=== PATIENT | female | born 1935 | race Caucasian/White ===

== ENCOUNTER 2016-09-23 09:41 | Day surgery (SDC) | payer MEDICARE, OTHER ==
--- NOTE | 2016-09-22 11:51 | PCM.ANEPRE ---
Anesthesia Pre-Op Review Reason for Review: FYI-CARDIAC HX,COPD Anesthesia Recommendations: Proceed with Procedure Additional Comments 81 yo F scheduled for I&D Left Foot by Dr. Putnam. Diabetic (HgA1c 7.1), COPD , atrial fibrillation, and CHF. Last echo 04/15/2016 with EF 40%, moderate/severe MR, mild , mild/mod TR. Low METS due to ulcerated foot. NSQUIP cardiac risk 1.6%, overall serious complications 20.9%. Overall low risk procedure likely able to be done under local MAC. OK to proceed with further eval by DOS anesthesiologist. Chart Reviewed by: Ashutosh Gooden MD Sep 22, 2016 11:51
[~2016-09-23] VITALS: Ht 162.6 cm; Wt 57.7 kg
[~2016-09-23 09:41] MED LIST: ALBU8.5H2 INHALATION; APIX2.5T PO; ARFO15VI2 IH; ATOR20TA65 PO; BIOT5CAP9 PO; BUDE10.2 INHALATION; FLAX100038 PO; IPRA3AMP IH; LISI2.5T PO; MAGN400C PO; METF500T4 PO; MULT-321 PO; OMEP20TA24 PO; PULM.25NEB IH; TOP100 PO; VIT1CAPS8 PO
[2016-09-23] MEDS ORDERED: fentaNYL-PF 50 mCg/mL 2 mL Inj ONE (09:42)
[2016-09-23] MEDS ORDERED: Propofol 10,000 mCg/mL 20 mL Inj ONE (09:42)
[2016-09-23] MEDS: Lactated Ringer's 1,000 ML IV SCH ×2 (10:08→13:13)
[2016-09-23 10:21] VITALS: BP 96/57; PULSE 87; RESP 12; O2SAT 93
[2016-09-23] MEDS ORDERED: CeFAZolin Inj 2 GM in IV Premix 1 EACH IV ONE (10:35)
[2016-09-23] MEDS ORDERED: Bupivacaine-MPF 0.5% W/EPI 30 mL Inj INFILTRATE ONE (13:29)
[2016-09-23] MEDS ORDERED: Bupivacaine-MPF 0.5% 30 mL Inj INJ ONE (13:29)
[2016-09-23] MEDS ORDERED: Gentamicin 40 mg/mL 2 mL Inj IRRIGATION ONE (13:31)
[2016-09-23 14:46] VITALS: BP 119/68; PULSE 74; RESP 16; O2SAT 95
[2016-09-23 15:25] VITALS: BP 114/61; PULSE 71; RESP 16; O2SAT 94
--- NOTE | 2016-09-23 15:34 | PCM.HPANE ---
Patient Data Surgeon Admitting Provider: Attending Provider:Frandy Putnam DPM Primary Care Physician:Davidson Garcia MD Other Provider:Elza Collado Anesthesia Reason for Visit Left Foot Osteomyelitis Ht/WT & BMI Height (Feet): 5 Height (Inches): 4.00 Weight (Kilograms): 57.700 Body Mass Index 21.00 Allergies Coded Allergies: lisinopril (Verified Adverse Reaction, Severe, renal failure, 09/22/16) naproxen (Verified Adverse Reaction, Severe, GI bleeding, 09/22/16) Past Anesthesia History Anesthesia History: Denies:: Anesthesia Reactions, Malignant Hyperthermia Diabetes History Hx Diabetes?: Yes Type of Diabetes: Type II Glycemic Control: Oral Medication Current Bedside Blood Glucose: 113 MRSA MRSA: No Medications Hypertension Medication: Yes (LISINOPRIL) Home Meds Incl Beta Uche: Yes (Metoprolol 50mg) Date Beta Uche Taken: Sep 23, 2016 Time Beta Uche Taken: 0700 Reported Medications Omeprazole Magnesium (Prilosec Otc)20 Mg Tablet.dr20 Mg PO DAILY #1 PKG Ref 0 09/22/16 Vit C/Vit E/Lutein/Min/[place]-3 (Ocuvite Softgel)1 Each Capsule1 Each PO DAILY 09/22/16 Lisinopril 2.5 Mg Tablet2.5 Mg PO DAILY 30 Days Ref 0 09/22/16 Flaxseed Oil ([place]-3 Flaxseed Oil)1,000 Mg Capsule1,000 Mg PO DAILY 09/22/16 Ipratropium/Albuterol Sulfate (Iprat-Albut 0.5-3(2.5) mg/3 mL Inhalant Soln)3 Ml Ampul.neb3 Ml IH Q6 PRN prn Ref 0 09/22/16 Budesonide (Pulmicort)0.25 Mg/2 Ml Nebu0.125 Mg IH BID PRN Shivering 30 Days Ref 0 09/22/16 Arformoterol Tartrate (Brovana)15 Mcg/2 Ml Vial.neb15 Mcg IH BID 09/22/16 Biotin 5 Mg Capsule5 Mg PO DAILY 09/22/16 Apixaban (Eliquis)2.5 Mg Tablet2.5 Mg PO DAILY 09/22/16 Budesonide/Formoterol 80-4.5 mcg Inh (Symbicort 80-4.5 mcg Inh)120 Puff Inhaler1 Puff INHALATION BID #1 INHALER Ref 0 11/09/15 Albuterol HFA (Proair HFA)8.5 Gm Hfa.aer.ad2 Puffs INHALATION Q4H PRN For Shortness of Breath #1 INHALER 11/09/15 Metformin 500 Mg Beiotc396 Mg PO BID Ref 0 11/09/15 Multivit with Calcium,Iron,Min (Maximum Daily Multivitamin)1 Each Tablet1 Each PO DAILY 08/18/14 Metoprolol Succinate ER (Toprol XL)100 Mg [id number] Mg PO BID 30 Days Ref 0 08/18/14 Magnesium Oxide (Magnesium)400 Mg Fmicvwe803 Mg PO DAILY 08/18/14 Atorvastatin Calcium 20 Mg Kduyvg72 Mg PO DAILY #30 TABLET Ref 0 08/18/14 Discontinued Reported Medications Flaxseed (Flaxseed Oil)1,000 Mg CapsuleUnknown Dose PO DAILY 11/09/15 Vit C/Vit E/Lutein/Min/[place]-3 (Ocuvite Softgel)1 Each Capsule1 Each PO DAILY 08/18/14 Aspirin 325 Mg Tablet.dr325 Mg PO DAILY #1 BOTTLE Ref 0 08/18/14 Omeprazole (Prilosec)20 Mg Capcr20 Mg PO DAILY 30 Days Ref 0 08/18/14 Discontinued Scripts Azithromycin (Zithromax)250 Mg Jvjcyh548 Mg PO DAILY #2 TABLET Ref 0 Prov:Celi Peña DO 11/13/15 Ipratropium/Albuterol Sulfate (Iprat-Albut 0.5-3(2.5) mg/3 mL Inhalant Soln)3 Ml Ampul.neb3 Ml IH Q6 #150 NEB Ref 0 Prov:Luis Sebastian MD 10/23/15 History History of ENT Problems?: Yes HEENT History: Positive for:: Cataracts (S/P B/L EXTRACTION) Sinus Problem Denies:: Dysphagia Denture Type: Full- Upper Partial- Lower Other HEENT Pertinent History: S/P TONSILLECTOMY Hx of Heart Problems?: Yes Cardiovascular History: Positive for:: Atrial Fibrillation (HX OF A FIB-ON ELIQUIS FOR ANITCOAG.-STOPPED 09/20/16) Chest Pain Congestive Heart Failure Edema Heart Murmur (GR II/ HOLOSYSTOLIC ECHO 03/2016 EF 40) Hypertension (HYPERLIPIDEMIA) Irregular Heartbeat (AF) Valvular Heart Disease (MOD/SEVERE MR, MILD AORTIC SCLEROSIS,MILD/MOD TR) Denies:: Cardiac Surgery Pacemaker Rheumatic Fever Thrombophlebitis Hx of Respiratory Problem?: Yes Respiratory History: Positive for:: Asthma COPD Dyspnea Pneumonia (HX OF) Use of Inhalers / NEBS Denies:: Chest Surgery Emphysema Hemoptysis Tuberculosis Use of C-PAP Machine Hx Neurologic Problems?: Yes Neurological History: Positive for:: CVA (TIA) Headaches TIA (2006) Denies:: Alzheimer's Disease Dementia Dizziness Parkinson's Disease Seizures Other Neurological Pertinent: HX PERIPHERAL NEUROPATHY Hx of GI Problems?: Yes Gastrointestinal History: Positive for:: Gastroesphageal Reflux Gastrointestinal Bleeding (??ETIOLOGY) Heartburn Hiatal Hernia Denies:: Diverticulitis Hepatitis Rectal Bleeding (HX COLON POLYPS) Other GI Pertinent History: S/P APPY, COLON RESECTION X2 W/ ILESOSTOMY FOR CA (W/ RECURRANCE) Hx of Problems?: Yes Genitourinary History: Denies:: HX of Hemodialysis (HYX CHRONIC RENAL INSUFFICIENCY) Kidney Stones Urinary Tract Infection HX of Peritoneal Dialysis: No Female Hx: Denies:: Currently Endometriosis Pelvic Inflammatory Problems with Breasts? Skin History: Positive for:: History Skin Disorders? (S/P EXC SQUAMOUS CELL CA /SKIN) Denies:: Pressure Ulcers (LT PLANTAR NON PRESSURE ULCERATION/OSTEOMYELITIS= CURRENT PROBLEM) Hx Musculoskeletal Problems?: Yes Musculoskeletal History: Positive for:: Back Injury (Pinched nerve in back last year, got injection. ) Osteoarthritis Denies:: Joint Replacement Musculoskeletal Trauma Hx of Psycho/Social Problems?: No Psycho Social History: Denies:: Anxiety Bipolar Disorder Hx Depression Suicide Attempt Hx Surgeries?: Yes (COLON RESECTION X2 W/ ILEOSTOMY,APPY,TONSILS,CATARACTS, SQUAMOUS CELL CA-SKI) Hx Any Other Health Problems?: Yes Other History: Positive for:: Cancer (SQUAMOUS CELL CA OF SKIN,COLON CA X2) Hospitalization (CARDIAC/COPD) Denies:: Endocrine Disease Thyroid Disease History Blood Transfusions: Denies:: Blood Transfuse Reaction Blood Transfusions Hx Diabetes: YesBedside Blood Glucose: 113 Hx Alcohol Use: YesHx Substance Use: No Smoking Status: Former Smoker Have You Smoked inLast 12 mo: No Stop/Bang S-Snoring: Do You Snore Loudly: No T-Tired: feel tired, fatigued: No O-Obsered: Observed not breath: No P-Blood Pressure: treated: Yes B- Body Mass Index > 35 kg/m2: No A- Age over 50: Yes N- Neck Large Circumference: No G- Gender Male: No ZACH Total Score: 2 Risk Assessment Category Category 1A: Patient has history of documented sleep apnea, and HAS NOT received any narcotic, sedative or anesthesia administration during this stay. Category 1B: Patient has history of documented sleep apnea, and HAS received any narcotic , sedative or anesthesia administration during this stay Category 2: Patient has SUSPECTED Obstructive Sleep Apnea, and HAS received any narcotic , sedative or anesthesia administration during this stay. Category 3: Patient has SUSPECTED Obstructive Sleep Apnea and HAS NOT received narcotic, sedative or anesthesia administration during this stay. Category 4: Outpatient in Procedural Areas with known sleep apnea or who screen positive for High Risk via the STOP/BANG questionnaire. Exam Exam Vital Signs Vital Signs Date Time Temp Pulse Resp B/P Pulse Ox O2 Delivery O2 Flow Rate FiO2 09/23/16 15:25 71 16 114/61 94 Room Air 09/23/16 14:46 36 74 16 119/68 95 Room Air 09/23/16 10:21 35.8 87 12 96/57 93 Room Air General Appearance: Alert, Oriented X3, Cooperative HEENT/AIRWAY: MP 2 Lungs: Normal Air Movement Heart: Exam Unremarkable Meds/Labs/Diagnostics Admission Meds Current Medications Lactated Ringer's 1,000 ml @ 120 mls/hr Q8H20M IV Last administered on 13:13; Start 09/23/16 at 05:00; Stop 09/23/16 at 13:19; Status DC Cefazolin Sodium/ Dextrose/Premix (Ancef Inj / D5W 50mL/IV Premix) 50 ml @ 100 mls/hr ONCE ONCE IV Last administered on 09/23/16 13:22; Start 09/23/16 at 10 :35; Stop 09/23/16 at 11:04; Status DC Lidocaine HCl (Xylocaine 2% Inj) 10 ml STK-MED ONCE INJ Last administered on 13:29; Start 09/23/16 at 13:29; Stop 09/23/16 at 14:02; Status DC Gentamicin Sulfate (Gentamicin Inj) 240 mg STK-MED ONCE IRRIGATION Last administered on 09/23/16 13:31; Start 09/23/16 at 13:31; Stop 09/23/16 at 14:02 ; Status DC Bupivacaine HCl/ Epinephrine Bitart (Sensorcaine-MPF 0.5% W/EPI Inj) 30 ml STK- MED ONCE INFILTRATE Last administered on 09/23/16 13:29; Start 09/23/16 at 13: 29; Stop 09/23/16 at 14:35; Status DC Bedside Blood Glucose: 113 Plan Impression Patient chart reviewed, patient interviewed and anesthestic plan with risks, benefits, and alternatives discussed, and informed consent obtained. NPO Status: 09/23 at 0700 ASA Physical Status: ASA3 Severe Disease Anesthetic Plan: MAC Bene/Risks/Altern/Consents: Yes HP Complete Prior to Induction: Yes Cj Hooker MD Sep 23, 2016 15:34
--- NOTE | 2016-09-23 15:35 | PCM.ANEP2 ---
Post Anesthesia Evaluation ASA/CMS Post Anesthesia VS in Patient's Normal Range?: Yes Resp Stable; Airway Patent?: Yes CV Function & Hydration Stable: Yes Mental Status Recovered?: Yes Pain control Satisfactory?: Yes N/V Control Satisfactory?: Yes Cj Hooker MD Sep 23, 2016 15:35
--- NOTE | 2016-09-23 15:35 | PCM.ANEP1 ---
Post Anesthesia Phase 1 PACU Phase 1 Assessment Vital Signs Vital Signs Date Time Temp Pulse Resp B/P Pulse Ox O2 Delivery O2 Flow Rate FiO2 09/23/16 15:25 71 16 114/61 94 Room Air 09/23/16 14:46 36 74 16 119/68 95 Room Air 09/23/16 10:21 35.8 87 12 96/57 93 Room Air Anesthetic Administered: MAC Level of Alertness: Awake, talking RODRÍGUEZ's with Equal Strength: Yes Pain: No Nausea or Vomiting: No Oxygen Delivery: Room Air Lungs: Normal Air Movement Dermatome Level: Full Sensation Cj Hooker MD Sep 23, 2016 15:35
[2016-09-23] MEDS ORDERED: Lactated Ringer's 1,000 ML IV SCH (15:36)
[2016-09-23] MEDS ORDERED: Lactated Ringer's 500 ML IV PRN (15:36)
[2016-09-23] MEDS ORDERED: MetoCLOpramide 5 mg/mL 2 mL Inj IVPUSH PRN (15:40)
[2016-09-23] MEDS ORDERED: EPHEDrine Sulfate 50 mg/mL Inj IVPUSH PRN (15:40)
[2016-09-23] MEDS ORDERED: fentaNYL-PF 50 mCg/mL 2 mL Inj IVPUSH PRN (15:40)
[2016-09-23] MEDS ORDERED: HYDROmorphone 1 mg/mL Inj IVPUSH PRN (15:40)
[2016-09-23] MEDS ORDERED: Phenylephrine 10,000 mCg/mL Inj IVPUSH PRN (15:40)
[2016-09-23] MEDS ORDERED: Dexamethasone 4 mg/mL Inj IVPUSH PRN (15:40)
[2016-09-23] MEDS ORDERED: Ondansetron 2 mg/mL 2 mL Inj IVPUSH PRN (15:40)
--- NOTE | 2016-09-24 07:20 | OP ---
[address] [address] OPERATIVE REPORT PATIENT: IGOR FRANCISCO : 1935 MR#: [id number] ADMIT: 09/23/2016 JOB ID: [id number] DATE OF SURGERY: 09/23/2016 SURGEON: Frandy Putnam DPM PREOPERATIVE DIAGNOSIS(ES): Diabetic ulceration with of the left 1st metatarsal. POSTOPERATIVE DIAGNOSIS(ES): Diabetic ulceration with of the left 1st metatarsal. PLANNED PROCEDURE: 1. Incision and drainage with pulse lavage left foot. 2. Partial excision of left 1st metatarsal. 3. Placement of antibiotic bead system. ANESTHESIA: Local with IV sedation. HEMOSTASIS: None. ESTIMATED BLOOD LOSS: Less than 10 cc. PROCEDURE AND FINDINGS: The patient was brought to the operating room, placed on table in supine position. She was placed under IV sedation afterwards. I performed a medial Vann blockade with 2% lidocaine plain solution. The left lower extremity was prepped and draped in a normal sterile surgical manner. Attention was directed to the plantar ulceration which was fully excised within skin lines with intent of primary closure. This was taken down to joint and bone using sharp and blunt dissection, carefully cauterizing and/or ligating any bleeders that were encountered. I then performed a dorsal medial incision along skin lines as well and carried this down to bone and joint using sharp and blunt dissection, carefully cauterizing and ligating any bleeders that were encountered. I was able to observe the areas of osteomyelitis on both sides of the metatarsal head and then used a rongeur to remove the majority of the distal metatarsal. The remaining edges were smoothed. Afterwards I removed samples for culture and sensitivity and for pathology report. The base of the proximal phalanx was removed in like fashion. Attention was given to create surfaces which would conform and create a pseudoarthrosis once this is healed. The wound was then copiously flushed with a total of 3 L of saline with gentamicin solution. After 2 L were passed through, I re-evaluated the soft tissue and excised all nonviable tissues. I then closed the plantar incision with a running interlocking 2-0 polypropylene and secured the plantar flexor tendon with 2-0 Prolene and applied a distal anchor button. The dorsal incision was irrigated once more with pulse lavage. We then fashioned on the back table polymethyl methacrylate beads of between 6 and 10 mm in diameter with gentamicin onto an ortho cord suture with a distal knot. We then placed these into the deficit space making sure to maintain good circulation to the right great toe throughout. The suture was tagged externally, then I partially closed the medial incision with a 2-0 polypropylene. The wound was further dressed with saline moistened gauze with gentamicin solution, two rolls of Kerlix, tubular stockinette, Jose bandage. The patient had delayed but present CFT throughout the procedure as no tourniquet was applied. She was transferred from the operating room in stable condition, having tolerated the procedure and anesthetic well. The patient was accompanied by her daughters with whom I discussed the procedure and also plan. The family has my cell phone should there be any complications over the weekend,but I intend to call also for phone interview. The patient has her questions answered and will follow with me at [facility] on Monday. I thank the surgical team for their expertise and assistance in this in the care of this very nice lady.
--- NOTE | 2016-09-27 10:21 | PATH ---
SURGICAL PATHOLOGY Attending Physician:Frandy Putnam DPM CASE STATUS: Signed Out PATIENT NAME: IGOR FRANCISCO PID: [id number] : 1935 DATE COLLECTED:09/23/2016 00:00 SPECIMEN: Bone, Biopsy CLINICAL HISTORY: LEFT FOOT BONE INFECTION 1). BONE, 1ST METATARSAL LEFT FOOT FINAL DIAGNOSIS: 1.BONE, FIRST METATARSAL, LEFT FOOT: BONE FRAGMENT WITH TRABECULAR THICKENING. NO OSTEONECROSIS OR ACTIVE INFLAMMATION IDENTIFIED. ICD10 code M85.9 GROSS DESCRIPTION: The specimen is received in one formalin filled container labeled with the patient's name, sublabeled "bone first metatarsal left foot" and consists of a fragment and pink-hinkle portion of tissue and or bone measures 0.7x x 0.7 x 0.4 CM. The specimen is entirely submitted in one cassette. The specimen will be placed in decal before processing. 09/24/2016 DAC MICRO DESCRIPTION: See diagnosis. ICD-9 CODES: CPT CODES: 1: 69869, 81068 Electronically Signed Out Domonique Sanchez MD [facility] [address], [place] [address] Technical component performed at [facility], [address] [place] [address] Ave[address], [place], [address]
== END 2016-09-23 23:59 | disposition home or self-care (01) ==
LOC: SAS 09:41
PROVIDERS: ATTEND Podiatrist
DX: M86.172 Other acute osteomyelitis, left ankle and foot (principal); E13.621 Other specified diabetes mellitus with foot ulcer; L97.529 Non-pressure chronic ulcer of other part of left foot with unspecified severity; N28.9 Disorder of kidney and ureter, unspecified; I27.2 Other secondary pulmonary hypertension; I11.0 Hypertensive heart disease with heart failure; I50.9 Heart failure, unspecified; I48.2 Chronic atrial fibrillation; J44.9 Chronic obstructive pulmonary disease, unspecified; E78.2 Mixed hyperlipidemia; I34.8 Other nonrheumatic mitral valve disorders; Z87.891 Personal history of nicotine dependence; Z79.84 Long term (current) use of oral hypoglycemic drugs; Z79.51 Long term (current) use of inhaled steroids
CPT/HCPCS: 11981; 28002; 28306; 87070; 87075; 87077; 87186; 87205; 88305; 88311; C1713; J0690; J1580; J2250; J3010; J7120

== ENCOUNTER 2016-11-23 16:05 | Inpatient (IN) | payer MEDICARE, OTHER ==
[~2016-11-23] VITALS: Ht 162.6 cm; Wt 57.8 kg
[2016-11-23 16:11] VITALS: BP 118/81; PULSE 69; RESP 16; O2SAT 98
[2016-11-23] MEDS ORDERED: 0.9% Sodium Chloride 1,000 ML IV ONE (16:38)
--- NOTE | 2016-11-23 16:38 | ED.REPORT ---
HPI-Abd Pain F 40 and Over Date of Service Nov 23, 2016 ED Provider: Doc,Ed MD Patient is an 81 year old female with a hx of HTN, CVA, COPD, Colon cancer, and DM who presents to the ED complaining of upper, midline abdominal pain onset last night. Eating or drinking does not exacerbate her pain. Associated symptoms include nausea, vomiting (onset this morning), constipation, and loss of appetite. She denies fever, chills, chest pain, dysuria, new SOB, or any other symptoms. She has never had a bowel obstruction before. Nursing Notes Stated Complaint: VOMITTING,STOMACH PAIN Chief Complaint: Female Abdominal Pain Nursing Notes Reviewed: Yes Allergies: Coded Allergies: naproxen (Verified Adverse Reaction, Severe, GI bleeding, 11/23/16) Scheduled Apixaban (Eliquis) 2.5 Mg Tablet 2.5 MG PO BIDWM Arformoterol Tartrate (Brovana) 15 Mcg/2 Ml Vial.neb 15 MCG IH BID Atorvastatin Calcium (Atorvastatin Calcium) 20 Mg Tablet 20 MG PO DAILYWD Biotin (Biotin) 5 Mg Capsule 5 MG PO QAM Budesonide (Pulmicort) 0.25 Mg/2 Ml Nebu 0.125 MG IH BID Flaxseed Oil ([place]-3 Flaxseed Oil) 1,000 Mg Capsule 1,000 MG PO QAM Ipratropium/Albuterol Sulfate (Iprat-Albut 0.5-3(2.5) mg/3 mL Inhalant Soln) 3 Ml Ampul.neb 3 ML IH DAILYWL Lisinopril (Lisinopril) 2.5 Mg Tablet 2.5 MG PO QAM Magnesium Oxide (Magnesium) 400 Mg Capsule 400 MG PO QAM Metformin (Metformin) 500 Mg Tablet 500 MG PO BIDWM Metoprolol Succinate ER (Toprol XL) 100 Mg Tabcr 100 MG PO BID Multivit with Calcium,Iron,Min (Maximum Daily Multivitamin) 1 Each Tablet 1 EACH PO QAM Omeprazole Magnesium (Prilosec Otc) 20 Mg Tablet.dr 20 MG PO DAILYWM Vit C/Vit E/Lutein/Min/[place]-3 (Ocuvite Softgel) 1 Each Capsule 1 EACH PO QAM Scheduled PRN Albuterol HFA (Proair HFA) 8.5 Gm Hfa.aer.ad 2 PUFFS INHALATION Q4H PRN PRN For Shortness of Breath Ipratropium/Albuterol Sulfate (Iprat-Albut 0.5-3(2.5) mg/3 mL Inhalant Soln) 3 Ml Ampul.neb 3 ML IH Q6 PRN PRN prn General Time Seen by MD: 16:38 Chief Complaint Abdominal pain Hx Obtained From: Patient Arrived By: Walk-in Sudden in Onset?: Yes Onset Occurred: Yesterday Symptom Duration: Since onset Risk Factors )( AAA Risk Stratification Hypertension Risk factors reviewed Past Medical History Past Medical History Notes: Admitted October 19 through 10/23/2015 for COPD exacerbation Past Medical History 1. Peripheral vascular disease with prior history of TIA/CVA. 2. Coronary artery disease, possible history of silent anteroseptal NH. 3. Hypertension, malignant. 4. Dyslipidemia. 5. Diabetes mellitus type 2. 6. Paroxysmal atrial fibrillation. - On aspirin therapy only as of 11/08/2025 7. Colon cancer. The patient status post initially partial then subtotal colectomy with ileostomy placement. 8. COPD/emphysema. 9. Osteoarthritis. 10. GERD. 11. Skin CA 12. Renal insufficiency Past Surgical History ileostomy Colon resection Skin CA removal Reports: Appendectomy, Cataract surgery, Tonsillectomy Smoking History Former Smoker Social History Alcohol Use: 1-3 per day Other Social History: Good social support, Lives alone, , Local resident Ambulatory Status Independent Review of Systems +decreased appetite Constitutional: Denies: Chills, Fever Respiratory: Denies: Shortness of breath Cardiovascular: Denies: Chest pain GI: Reports: Abdominal pain, Constipation, Nausea, Vomiting Female: Denies: Dysuria Complete sys rev & neg: except as marked. Physical Exam Vital Signs Vital Signs (First) Date Time Temp Pulse Resp B/P Pulse Ox O2 Delivery O2 Flow Rate FiO2 11/23/16 16:11 36.6 69 16 118/81 98 Room Air Initial VS: Reviewed Head / Eyes: Atraumatic, Normocephalic Neck: Supple, Full range of motion Skin: Warm, Dry Neurologic: Alert, Oriented, Nonfocal Psychiatric: Mood/affect normal, Behavior normal, Normal thought content General/Constitutional: Awake, Alert, Well developed Respiratory / Chest: Breath sounds NL, Breath sounds = bilat, No respiratory distress Cardiovascular: Heart rate NL, Regular rhythm, Heart sounds NL, No gallop, No murmurs, No rubs Abdomen: Soft, Non-tender, BS normoactive, No distention ostomy bag empty No superpubic tenderness Back: Atraumatic Interpretation & Diagnostics Lab Results Interpretation Result Diagram: 11/23/16 1650 11/23/16 1650 Test 11/23/16 16:50 11/23/16 18:00 White Blood Count 10.6th/mm3 (3.8-10.1) Red Blood Count 5.03mil/mm3 (3.90-5.20) Hemoglobin 15.2g/dL (12.0-15.6) Hematocrit 45.7% (35.0-46.0) Mean Corpuscular Volume 90.9fL (81-100) Mean Corpuscular Hemoglobin 30.2pg (27.0-35.0) Mean Corpuscular Hemoglobin Concent 33.3% (32.0-37.0) Red Cell Distribution Width 13.8% (12.3-15.4) Platelet Count 306bil/L (150-400) Neutrophils (%) (Auto) 86.5% (40-74) Lymphocytes (%) (Auto) 7.7% (14-46) Monocytes (%) (Auto) 4.5% (4-12) Eosinophils (%) (Auto) 0.6% (0-5) Basophils (%) (Auto) 0.4% (0-3) Sodium Level 135mEq/L (134-144) Potassium Level 5.6mEq/L (3.5-5.2) Chloride Level 94mEq/L (97-108) Carbon Dioxide Level 21mmol/L (18-29) Blood Urea Nitrogen 39mg/dL (8-27) Creatinine 1.55mg/dL (0.57-1.00) Estimat Glomerular Filtration Rate 46mL/min (>59) Glucose Level 204mg/dL (60-99) Calcium Level 11.0mg/dL (8.5-10.1) Magnesium Level 1.6mg/dL (1.6-2.6) Total Bilirubin 0.5mg/dL (0.0-1.2) Aspartate Amino Transf (AST/SGOT) 32U/L (0-50) Alanine Aminotransferase (ALT/SGPT) 22U/L (0-32) Alkaline Phosphatase 87U/L (25-165) Total Protein 8.2g/dL (6.4-8.4) Albumin 4.7g/dL (3.4-5.0) Lipase 51U/L (13-60) Urine Color Yellow (YELLOW) Urine Appearance Clear (CLEAR,HAZY) Urine pH 5.5 (5.0-8.0) Urine Specific [place] 1.020 (1.003-1.035) Urine Protein 30mg/dL (NEG,TRACE) Urine Glucose (UA) Negativemg/dL (NEGATIVE) Urine Ketones Negativemg/dL (NEGATIVE) Urine Occult Blood Negative (NEGATIVE) Urine Nitrite Negative (NEGATIVE) Urine Bilirubin Negative (NEGATIVE) Urine Urobilinogen Normalmg/dL (NORMAL) Urine Leukocyte Esterase Negative (NEGATIVE) Urine RBC 0-2/hpf (0-2) Urine WBC 0-5/hpf (0-5) Urine Epithelial Cells Few/hpf (NONE-MOD) Urine Crystals None seen (NONE SEEN) Urine Bacteria Few/hpf (NONE-FEW) Urine Hyaline Casts 5/20/lpf (NONE) Urine Granular Casts Rare (NONE SEEN) Urine Waxy Casts None seen (NONE SEEN) Urine Red Blood Cell Casts None seen (NONE SEEN) Urine White Blood Cell Casts None seen (NONE SEEN) Urine Mucus Present (None Seen) Urine Trichomonas None seen (NONE SEEN) Urine Yeast None (NONE SEEN) Urinalysis Comment None Urine Culture Reflexed Not indicated X-Ray Abdominal Interpretation IMPRESSION: 1. Several dilated loops of bowel within the left mid abdomen , worrisome for mid small bowel obstruction. 2. Multiple small calcified gallstones. Dictated by: Gonzalo Charles M.D. on 11/23/2016 at 18:19 Approved by: Gonzalo Charles M.D. on 11/23/2016 at 18:21 Interpretation / Wet Read by: Interpret - Radiologist Re-Eval/Medical Decision Med Decision/Clinical Course 81-year-old female with small bowel obstruction history of previous ileostomy secondary to colon cancer. At present she is comfortable and not nauseated so I have elected not place an NG tube. A CT scan with oral contrast is ordered and pending at present, surgery has been consulted to be admitted to the hospitalist service on observation status. Re-Evaluation/Progress : Time of Eval: 18:44 )( Re-Eval Abdomen: Soft Re-Evaluation/Progress Note: rechecked pt. She is feeling much better, Discussed imaging results. Discussed need for admission. Patient understands and agrees with plan. All questions addressed at this time. Consultation #1: Referral / Consult Name: Dilshad García MD Consulted With: Surgeon Call Returned at: 18:46 [employer] Driver: Agrees with eval, Agrees with plan Note: Discussed pt. case. Will consult. Consultation #2: Referral / Consult Name: Louis Hickey MD Consulted With: Hospitalist Call Returned at: 19:19 [employer] Driver: Will see patient, Agrees with eval, Agrees with plan, Accepts admit Note: Discussed pt. case. Accepts admit. Counseled Regarding: Diagnosis, Lab results, Need for admission Discharge & Departure Primary Impression: Bowel obstruction Intestinal obstruction type: unspecified Qualified Code: K56.60 - Unspecified intestinal obstruction Disposition: ADMITTED TO HOSPITAL Referrals: Davidson Garcia MD (PCP) Scribe Attestation Portions of this note were transcribed by Leo Araujo. I, Dr. Boyer personally performed the history, physical exam and medical decision-making; I reviewed and confirmed the accuracy of the information in the transcribed note. Signed by: Leo Araujo 11/23/2016, 1919 copies to: Davidson Garcia MD, Donald L MD Nov 23, 2016 16:38 LEO ARAUJO Nov 23, 2016 17:43
[2016-11-23] MEDS ORDERED: Ondansetron 2 mg/mL 2 mL Inj IVPUSH PRN ×2 (16:40→19:25)
[2016-11-23] MEDS ORDERED: HYDROmorphone 0.5 mg/0.5 mL iSecure Syringe IVPUSH PRN (16:40)
[2016-11-23 16:56] LABS: BASOPHILS % (AUTO) 0.4 % (0-3); EOSINOPHILS % (AUTO) 0.6 % (0-5); MONOCYTES % (AUTO) 4.5 % (4-12); Mean Corpuscular Hemoglobin 30.2 pg (27.0-35.0); Mean Corpuscular Volume 90.9 fL (81-100); NEUTROPHILS % (AUTO) 86.5 % (40-74); Platelet Count 306 bil/L (150-400)
[2016-11-23 17:16] LABS: Magnesium 1.6 mg/dL (1.6-2.6)
[2016-11-23 18:19] LABS: APPEARANCE,URINE CLEAR (CLEAR,HAZY); COLOR,URINE YELLOW (YELLOW); OCCULT BLOOD,URINE NEGATIVE (NEGATIVE); PH,URINE 5.5 (5.0-8.0); UROBILINOGEN,URINE NORMAL (NORMAL)
--- NOTE | 2016-11-23 18:28 | DRSVH ---
PROCEDURE: X-RAY ACUTE ABDOMINAL SERIES ([id number]) INDICATIONS: 81 year-old female with abdominal pain for several days. TECHNIQUE: One view chest and two views of the abdomen were acquired. COMPARISON: [facility], CR, XR CHEST 2VW, 11/09/2015, 19:17. [facility], CR, XR CHEST 1VW (PORTABLE), 10/20/2015, 18:11. [facility], CR, CHEST 1VW (PORTABLE), 015, 4:27. FINDINGS: Surgical changes and devices: None. Chest: Lungs are clear. Heart size is normal. No pleural effusions. No pneumoperitoneum. Abdomen: Several dilated loops of small bowel are present in the left mid abdomen. Multiple small gregory cified gallstones are present. Visualized solid organ contours appear normal. Bones: No suspicious bony lesions. There is lumbar spine disc degeneration and mild scoliosis. IMPRESSION: 1. Several dilated loops of bowel within the left mid abdomen , worrisome for mid small bowel obstruc tion. 2. Multiple small calcified gallstones. Dictated by: Gonzalo Charles M.D. on 11/23/2016 at 18:19 Approved by: Gonzalo Charles M.D. on 11/23/2016 at 18:21
[2016-11-23] MEDS ORDERED: Iohexol 300 mg/mL 30 mL Inj PO ONE (18:55)
[2016-11-23 19:06] VITALS: BP 101/69; PULSE 94; RESP 16; O2SAT 98
[2016-11-23] MEDS ORDERED: IPRA3AMP IH (19:19)
[2016-11-23] MEDS ORDERED: Alum-Mag Hydrox-Simeth 30 mL Suspension PO PRN (19:25)
[2016-11-23] MEDS ORDERED: Polyethylene Glycol (PEG) 17 Gm Powder PO PRN (19:25)
[2016-11-23 19:43] VITALS: BP 101/69; PULSE 94; RESP 16; O2SAT 98
--- NOTE | 2016-11-23 20:08 | PCM.HPMED ---
Subjective Date of Service Nov 23, 2016 Primary Provider: Admitting Physician: Louis Hickey MD Primary Care Physician: Davidson Garcia MD Attending Physician: Louis Hickey MD Admit Status: From the Emergency Department Chief Complaint: Nausea, vomiting, abdominal pain History of Present Illness: Ms. 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 She was admitted for observation of findings suggestive of small bowel obstruction. Hospital day 1 Ms. 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 She denies any associated fever, chills, cough, dysuria. She also denies any changes in her ostomy output, and believe she change the bed the day of admission. She denies any blood within her urine or ostomy output. She states her abdominal pain as diffuse, but primarily in the epigastric and upper quadrants, described as intermittently sharp. She states she has no history of prior bowel obstruction. She does note some recent sick contacts, but her sick contacts were ill with fevers, chills, and general malaise. Ms. Hayes states she feels rather well aside from her current symptoms of vomiting and abdominal pain. She states she has been tolerating oral intake well, without any dysphagia, cough, shortness of breath, chest pain, palpitations. She tolerated the oral contrast well in the ED. She was recently seen by cardiology 10/20/16, and at that visit, she was noted to have continued hyperkalemia. She was also seen by her PCP 10/06/2016, and at that visit, her A1c was 7.3, and her medical conditions were stable at that time. In the ED, T 36.6, pulse 69, respiratory rate 16, blood pressure 118/81, 98% on room air; initial labs revealed WBC 10.6 with 86.5 neutrophils, hemoglobin 15.2 , potassium 5.6, BUN/creatinine 39, creatinine 1.55, calcium 11.0; UA obtained was negative for occult blood, leukocyte esterase, and nitrites, few bacteria were seen. Initial imaging was acute abdominal series x-ray which revealed several dilated loops of small bowel within the left mid abdomen which was suggested of mid small bowel obstruction in addition to multiple small calcified gallstones. The ED physician graciously contacted the surgical team, Dr. Manoj García, whom agreed that he will consult on this patient. CT abdomen and pelvis with oral contrast was ordered, study pending at time of admission. She was seen in the emergency department in stable condition, with plans for transfer to [facility]. Review of Systems: Complete our was obtained; pertinent positives and negatives as noted above Allergies Coded Allergies: naproxen (Verified Adverse Reaction, Severe, GI bleeding, 11/23/16) Home Medications Obtained from And documentation, dated 10/20/16: Cassie Hayes [id number] 1935 10/20/2016 10:30 AM 08/07 Start Date Medication Directions 07/08/2009 albuterol sulfate HFA 90 mcg/Actuation Aerosol Inhaler inhale 2 puff by INHALATION route every 4 - 6 hours as needed 10/06/2016 atorvastatin 20 mg tablet TAKE 1 TABLET BY MOUTH EVERY DAY for high cholesterol. biotin take 1 (5,000mg) tablet every day 03/14/2016 Brovana 15 mcg/2 mL solution for nebulization inhale 2 milliliter by inhalation route 2 times every day 03/14/2016 budesonide 0.5 mg/2 mL suspension for nebulization inhale 2 milliliter by nebulization route 2 times every day 03/14/2016 DuoNeb 0.5 mg-3 mg(2.5 mg base)/3 mL solution for nebulization use once a day 06/07/2016 Eliquis 2.5 mg tablet take 1 tablet by oral route 2 times every day flaxseed oil 1 daily 06/07/2016 lisinopril 2.5 mg tablet take 1 tablet by oral route every day 01/26/2016 metformin 500 mg tablet take 1 tablet by oral route 2 times every day with morning and evening meals 04/08/2009 multivitamin with iron Tab take 1 tablet by ORAL route every day with food 11/09/2011 Ocuvite Tab take 1 every day 10/04/2010 Prilosec 20 mg Cap take 1 capsule (20MG) by oral route every day before a meal 10/28/2015 Symbicort 160 mcg-4.5 mcg/actuation HFA aerosol inhaler inhale 2 puff by inhalation route 2 times every day in the morning and evening 10/04/2016 Toprol XL 100 mg tablet,extended release TAKE 1 TABLET BY MOUTH TWICE A DAY for heart PMH 1. Peripheral vascular disease with prior history of TIA/CVA. 2. Coronary artery disease, possible history of silent anteroseptal LA. 3. Hypertension, malignant. 4. Dyslipidemia. 5. Diabetes mellitus type 2. 6. Paroxysmal atrial fibrillation. - On aspirin therapy only as of 11/08/2025 7. Colon cancer. The patient status post initially partial then subtotal colectomy with ileostomy placement. 8. COPD/emphysema. 9. Osteoarthritis. 10. GERD. 11. Skin CA 12. 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, 2005 Appendectomy Tonsillectomy Both eyes cataract Family History Father and grandfather diabetes; mother high blood pressure, aunt macular degeneration, grandmother gastric cancer Social History Hx Alcohol Use: Yes Hx Substance Use: No Hx Tobacco Use: Yes Smoking Status: Former Smoker (21-zfgx-beod history) Living Arrangement: with Family (local; fully independent) Exam Vital Signs Vital Sign - Last Date Time Temp Pulse Resp B/P Pulse Ox O2 Delivery O2 Flow Rate FiO2 11/23/16 19:43 36.6 94 16 101/69 98 Room Air Exam General: Alert and oriented 3, no acute distress, pleasant and cooperative HEENT: Atraumatic, sclerae anicteric, no conjunctival hemorrhage, mucous membranes moist Cardiac: Regular rate at time of examination, 2/6 holosystolic murmur appreciated Respiratory: Equal airflow all porter, no wheeze or crackles appreciated Abdomen: Ileostomy in place, without surrounding erythema, nontender, nondistended; ostomy bag is empty at time of examination Extremities: Left lower extremity bandaged secondary to recent procedure without evidence of erythema extending beyond standard imaging; no edema present of upper and lower extremities bilaterally Skin: Warm and dry MSK: Patient is able to move forward 4 extremities against gravity Neuro: Cranial nerves II through XII grossly intact, facial expressions equal and symmetric, speech without slurring Psych: Appropriate mood, affect, and responses to questioning; good insight and judgment Lab and Diagnostics Result Diagram: 11/23/16 16511/23/16 165 Assessment & Plan Ms. 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 She was admitted for observation of findings suggestive of small bowel obstruction. Hospital day 1 Suspected small bowel obstruction, acute, present on admission. Under evaluation - Sx: epigastric and upper quadrant abd pain - Acute series abdomen: Findings suggestive of small bowel obstruction - ED contacted general surgery; consult order has been placed - Lipase 51; no findings suggestive of pancreatitis - Patient has history of extensive bowel surgery, adhesions may be source of obstruction; also consider infectious etiologies given recent sick contacts with similar symptoms - Await results of CT abdomen and pelvis - Nothing by mouth - NG tube not required at this time; monitor Metabolic acidosis, acute, present on admission. Under evaluation - On admit: AG 20; likely secondary to electrolyte shifts from nausea, vomiting/ fluid shifts - Treat underlying causes - LA added to labs Acute on chronic kidney disease, stage III, present on admission. Active - On admit: Creatinine 1.55; 10/05/16 1.02; previous values 1.06, 1.05, 1.12 - Gentle hydration, NS 80 - Avoid nephrotoxic medications - Holding metformin, lisinopril Leukocytosis, acute, present on admission. Under evaluation - No obvious signs of infection: Afebrile; but pt has recent sick contacts with similar sx - Added on: PCT, lactic acid, stool PCR - Likely secondary to stress Hyperkalemia, chronic, present on admission. Monitor - This is a chronic condition for the patient; outpatient values: 5.5, 5.2 - On admit: K 5.6; asymptomatic - Avoid Kayexalate at this time secondary to bowel symptoms - Repeat - Tele Chronic atrial fibrillation on Eliquis. Presumed stable - Holding anticoagulation at this time while we wait for CT results to determine if patient will require surgical intervention - If CT does not have findings indicative of need for emergent procedure, will continue anticoagulation therapy - Rate control metoprolol continued Non-insulin using diabetes mellitus, chronic. Presumed stable - A1c September 2016: 7.3 - Holding metformin at this time - Low-dose correctional scale in place Suspected osteomyelitis left lower extremity status post debridement and completion of antibiotic therapy, chronic. Presumed stable - Patient reports infection of her bone of left lower extremity; procedure completed by Dr. Putnam - Not on current antibiotic therapy - Followed at wound care; wound care consult order placed COPD with emphysema. Presumed stable - Duoneb qidwa + accuneb q2h Hyperlipidemia and history of CVA/TIA. Chronic, presumed stable - Continue statin therapy PRN: Fever/bowel/nausea/pain DVT: SCDs only at this time; await results CT prior to initiating anticoag therapy GI: Not indicated Diet: Nothing by mouth CODE STATUS: Full code Patient status: Due to severity of representing symptoms, risk of adverse events , and likely course of care, anticipated length of stay does not exceed to midnight; patient admitted as observation status Pain Evaluation: Adequate Pain Control GI Prophylaxis: Not indicated VTE Prophylaxis: SCDs Resuscitation Status: CPR: Attempt Resuscitation Attending Statement The patient was seen and examined together with Dr. Butler on 11/23 and I agree with the history, exam and plan as outlined in the note above. Kayla Butler DO Nov 23, 2016 20:08 Louis Hickey MD Nov 23, 2016 22:25
[2016-11-23] MEDS ORDERED: Glucose 40% Oral Gel 15 Gm Tube PO PRN (20:35)
--- NOTE | 2016-11-23 20:53 | DRSVH ---
PROCEDURE: CT ABDOMEN AND PELVIS WITHOUT CONTRAST ([id number]) INDICATIONS: 81 year-old female with abdominal pain, and small bowel obstruction on radiographs. TECHNIQUE: Intravenous contrast was not administered due to decreased GFR level. After the administration of ora l contrast, 5 mm thick sections acquired from the diaphragms to the symphysis. 5 mm coronal and sagi ttal reformats were performed. For radiation dose reduction, the following was used: automated expo sure control, adjustment of mA and/or kV according to patient size. COMPARISON: [facility], CR, XR ABD ACUTE SERIES 3VW, 11/23/2016, 18:06. FINDINGS: Image quality: Excellent. ABDOMEN: Lung bases: Lung bases are clear. Heart size is normal. Solid organs: Liver and spleen are normal in size. Gallbladder contains multiple dependent calcifie d gallstones. Pancreas is normal in size. No adrenal nodules. Both kidneys are normal in size, wit hout hydronephrosis or nephrolithiasis. 2.2 cm medial left and 1.1 cm anterior right renal cortical s imple cysts are present. Peritoneum and bowel: There is moderate distention of multiple proximal and mid small bowel loops, wi th transition point in the right mid abdomen involving the distal third of the small bowel. Distal mo st small bowel loops are decompressed, status post total colectomy with right mid abdominal ileostomy . No free fluid or air. Nodes and vessels: No retroperitoneal or mesenteric adenopathy by size criteria. Aorta and inferior vena cava are normal in size, with widespread aortoiliac atherosclerosis. Miscellaneous: Parastomal hernia is present, containing several nondilated loops of bowel.. PELVIS: Genitourinary: Bladder wall thickness is normal. Uterus is normal in overall size. The ovaries are n ot well seen. Miscellaneous: No inguinal hernias or adenopathy. Bones: No suspicious bony lesions. No vertebral body compression fractures. There is multilevel lum bar spine disc degeneration, with grade 1 L4-L5 spondylolisthesis from facet joint degeneration. IMPRESSION: 1. Status post total colectomy with right mid abdominal ileostomy, with findings of distal high grade small bowel obstruction, presumably secondary to surgical adhesions. No current findings to suggest bowel ischemia. 2. Right parastomal hernia, with several nondilated loops of distal small bowel. 3. Cholelithiasis, without evidence for acute cholecystitis. Dictated by: Gonzalo Charles M.D. on 11/23/2016 at 20:36 Approved by: Gonzalo Charels M.D. on 11/23/2016 at 20:47
--- NOTE | 2016-11-23 20:55 | NUR ---
Admit/Observation Patient arrived form ED in wheelchair at 1954, able to transfer to bed with SBA or Cane. Oriented to room by NAC. Patient denies CP, SOB, and or abdominal discomfort at this time. Declines pain medication states she is "Comfortable." Shortly after arrival patient was taken to imaging for CT scan via wheelchair. Patient is to remain NPO in hopes that in time the gut will correct itself, until then we will continue to monitor.
[2016-11-23] MEDS ORDERED: METOPROLOL SUCCINATE 100 MG PO SCH (21:00)
[2016-11-23 21:02] VITALS: BP 125/81; PULSE 59; RESP 17; O2SAT 98
[2016-11-23] MEDS ORDERED: Albuterol 2.5 mg/3 mL Inhalation Solution NEB PRN (21:25)
[2016-11-23] MEDS: Insulin LISPRO 300 Unit/3 mL Inj SUBQ SCH (22:00)
--- NOTE | 2016-11-23 22:40 | CONS ---
[address] [address] CONSULTATION REPORT PATIENT: IGOR FRANCISCO : 1935 MR#: [id number] ADMIT: 11/23/2016 JOB ID: [id number] DATE OF SERVICE: 11/23/2016 CHIEF COMPLAINT: SBO. HISTORY OF PRESENT ILLNESS: The patient is an 81-year-old female who presented to the emergency department tonight due to nausea and vomiting and abdominal pain. The patient had a prior history of R charlie-colectomy in 2003 for cancer followed by a total abdominal colectomy with ileostomy and lysis of adhesions by Dr. Fredi Owusu in August 2005 due to recurrent colon cancer. The patient states that she went to bed last night and then woke up with abdominal pain. It was described to be in the mid upper abdominal region. The pain lasted all night. This was followed by nausea and vomiting x3 early today. The patient has noticed decreased output from the ileostomy, however, it is still draining liquid. The patient typically changes her ileostomy bag approximately five times a day and, so far, she has not needed to change it once. The patient currently feels some nausea and a little bit of discomfort on her left side. Workup in the emergency department included abdominal x-rays and subsequently a CT scan of the abdomen and pelvis which suggests cholelithiasis and peristomal hernia with several loops of nondilated small bowel and signs of distal small bowel obstruction. I was consulted by the ED physician for evaluation. The patient currently does not have an NG tube in place. PAST MEDICAL HISTORY: Right charlie-colectomy in 2003 for colon CA, total abdominal colectomy with ileostomy and lysis of adhesions in August [address] Fredi Owusu, TIA, hypertension, COPD, diabetes, coronary artery disease, appendectomy, cataract surgery and tonsillectomy, L foot wound being seen at Wound Care, chronic renal insufficiency. MEDICATIONS AT HOME: 1. Albuterol inhalers. 2. Eliquis. 3. Atorvastatin. 4. Pulmicort. 5. Lisinopril. 6. Magnesium. 7. Metformin. 8. Metoprolol. 9. Omeprazole. 10. Vitamins. ALLERGIES: NAPROSYN. SOCIAL HISTORY: The patient lives alone near [place]. She quit smoking many years ago. 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 FAMILY HISTORY: Positive for heart disease and colon cancer in a cousin. REVIEW OF SYSTEMS: Positive for the abdominal pain and nausea and vomiting, and decreased ileostomy output. PHYSICAL EXAMINATION: The patient is currently in the hospital bed in no acute distress. BMI is 22.1. Her temperature is 36.4, blood pressure 125/81, pulse is 59, respirations 17. Head is normocephalic, atraumatic. There is no scleral icterus. Neck is supple. Heart is regular. Lungs are clear. Abdomen is only mildly distended. There is a right lower quadrant ileostomy with an appliance with liquid within the bag. Patient thinks it is still draining. On palpation, it is mostly soft and the patient only reports mild discomfort with palpation in the left lateral lower quadrant. There are definitely no peritoneal signs. Extremities show no clubbing and no cyanosis. Neurologically, patient is awake and alert and answers appropriately. LABORATORY EXAMINATION: Tonight showed a white blood count of 10.6, hematocrit 45.7, platelet count 306. Sodium is 135, potassium 5.6, creatinine 1.55, glucose of 204, her total bilirubin is 0.5, lipase 51. Her urinalysis shows negative leukocyte esterase, few bacteria. ASSESSMENT: This is an 81-year-old female with a history of total abdominal colectomy with an ileostomy who has most likely a partial small bowel obstruction. The patient's ileostomy is still draining liquid, however, she does notice that it is less in amount. The patient only has mild left-sided discomfort on exam. She currently does not have an NG tube in place. The patient should receive supportive care at this point. I will let Dr. Fredi Owusu know that she is in-house. If she does have recurrent nausea and vomiting, an NG tube should be placed and consideration can be given at that point to doing a Gastrografin challenge. Hopefully, her partial small-bowel obstruction will resolve without surgical intervention. I will repeat her abd xrays in the morning. LEO
[2016-11-23] MEDS: 0.9% Sodium Chloride 1,000 ML IV SCH (23:46)
[2016-11-24] VITALS (12 sets, daily range): BP systolic 99–125; BP diastolic 58–69; PULSE 70–102; RESP 16–18; O2SAT 95–99
[2016-11-24 05:40] LABS: BASOPHILS % (AUTO) 0.7 % (0-3); EOSINOPHILS % (AUTO) 4.4 % (0-5); MONOCYTES % (AUTO) 12.9 % (4-12); Mean Corpuscular Hemoglobin 30.2 pg (27.0-35.0); NEUTROPHILS % (AUTO) 68.2 % (40-74); Platelet Count 247 bil/L (150-400)
[2016-11-24 06:17] LABS: Magnesium 1.6 mg/dL (1.6-2.6); Phosphorus 5.4 mg/dL (2.5-4.9)
[2016-11-24] MEDS: Insulin LISPRO 300 Unit/3 mL Inj SUBQ SCH ×4 (07:54→22:00)
[2016-11-24] MEDS: Albuterol-Ipratropium 3 mL Inhalation Solution NEB SCH ×4 (08:09→19:18)
[2016-11-24] MEDS: 0.9% Sodium Chloride 1,000 ML IV SCH ×2 (08:25→12:04)
[2016-11-24] MEDS: MeTOProlol XL 50 mg ER24 Tablet PO SCH ×2 (08:30→13:28)
--- NOTE | 2016-11-24 08:52 | DRSVH ---
PROCEDURE: X-RAY ABDOMEN WITH ERECT AND/OR DECUBITUS VIEWS ([id number]) INDICATIONS: SMALL BOWEL OBSTRUCTION TECHNIQUE: 2 views of the abdomen were acquired. COMPARISON: [facility], CT, CT ABD PELVIS WO CON, 11[facility]23[facility]2016[facility] 20:36[facility] ACUTE SER[facility] 3VW, 11/23/2016, 18:06. FINDINGS: Surgical changes and devices: None. Bowel: Persistent mild gaseous distention of several small bowel loops within the midabdomen and othe rwise gas is present within the colon. Air-fluid levels have decreased. No pneumatosis or bowel wal l thickening. No pneumoperitoneum. Soft tissues: No masses; visualized solid organ contours appear normal in size. No suspicious abdom inal calcifications. Gallstones redemonstrated. Bones: No suspicious bony abnormalities. IMPRESSION: 1. Persistent partial small bowel obstructive pattern present which overall has slightly improved in appearance compared to prior CT and plain film series. 2. Cholelithiasis redemonstrated. Dictated by: Roger GAONA Interpreted: Erika Page MD on 11/24/2016 at 8:49 Transcribed by: CELY on 11/24/2016 at 8:52 Approved by: Erika Page M.D. on 11/26/2016 at 9:05
[2016-11-24] MEDS: Pantoprazole 20 mg ER24 Tablet PO SCH (10:38)
--- NOTE | 2016-11-24 11:16 | NUR ---
Wound Care Wound evaluation received and patient seen at bedside. 81 yo female admitted with possible bowel obstruction. Patient is followed at the wound center by Dr Putnam for right great toe ulceration with underlying osteomylitis. Dressing taken down today, wick removed from wound bed. Wound measures 0.3 cm in diameter with a depth of 0.7 cm. Irrigated with saline and cleaned with sterile Q tip, repacked with a wick of acticoat flex and covered with betadine moist 2x2 gauze and taped in place. Patient has HH for dressing changes and an appointment with Dr Putnam at the wound center on 11/29/16. No further wound needs at this time.
--- NOTE | 2016-11-24 11:29 | NUR ---
Blood pressure Withheld morning dose of blood pressure malediction per MD arrieta d/t low bp. Addendum: 11/24/16 at 1321 by SUKHI CHAMPAGNE RN critical systems technician called an pt has been running afib 100's-150's. Spoke with To give metoprolol now.
--- NOTE | 2016-11-24 12:18 | PROG NOTE ---
[address] [address] PROGRESS NOTE PATIENT: IGOR FRANCISCO : 1935 MR#: [id number] ADMIT: 11/23/2016 JOB ID: [id number] DATE: 11/24/2016 SUBJECTIVE: She is remains afebrile with stable vital signs. She reports being quite hungry, that her ileostomy output is back up to normal. Her abdomen is soft, with normal bowel tones, no tenderness. LABORATORY DATA: White count is down to normal at 6. Hematocrit is 39 with hydration. Electrolytes are normal except for slightly elevated potassium of 5.8 and a creatinine of 1.54. IMAGING: She had acute abdominal series that demonstrates some fairly nonspecific bowel loops to my view, essentially unchanged from her previous plain films, though the official radiology reading notes that is worrisome for mid small-bowel obstruction. IMPRESSION AND PLAN: She has clinically resolved her bowel obstruction and her x-ray pictures may simply lag behind. We will Hep-Lock her and start her up on full liquids and advance her to a soft diet. I anticipate that she will do well and likely go home either this evening or tomorrow.
--- NOTE | 2016-11-24 13:05 | NUR ---
Blood Glucose Pt's blood glucose at 145 was 57. Gave 120 mLs of apple juice. Rechecked in 15 min blood glucose of 49. Gave 15 grams oral gel. Rechecked in 15mins. Pt tolerating full liquid diet and blood glucose was 100. Pt A&Ox3 and has no complaints of low blood sugar. Will continue to monitor.
--- NOTE | 2016-11-24 14:16 | NUR ---
Social Work- Initial Assessment Data: See Initial Assessment. Pt is a 81 year old female admitted 11/23/16 for bowl obstruction per H&P. Pt's insurance is [employer] and [employer]. Pt's PCP is Davidson Garcia MD. LACI met with pt and daughter Breana ([phone]) at bedside regarding discharge plan, SW role explained. Pt alert and oriented x3. Pt resides in a home alone in [place] where she remains independent with ADLs. Pt uses a cane at base and continues to drive. Pt is open with Maria Eugenia JESSICA RN for wound care. LACI notified Maria Eugenia JESSICA of pt's admission and access provided. Pt will need resume HH orders at discharge. Pt has no SNF history. Pt has no LTC or VA benefits. Pt's DPOA is whitney Toussaint, AD on file. Pt to discharge home with whitney Bai to transport via POV. SW will continue to follow. Assessment: Pt who is open with Maria Eugenia JESSICA RN for wound care. Plan: Pt to require resume Maria Eugenia JESSICA RN orders at discharge. Pt to discharge home with whitney Bai to transport via POV. SW will continue to follow. SALIMA Max Addendum: 11/24/16 at 1419 by AMADO ROWAN Amended: Links added.
--- NOTE | 2016-11-24 18:14 | PCM.PNMED ---
Subjective Date of Service Nov 24, 2016 Subjective Eating gen diet for dinner, no complaints, says surgery told her probably home tomorrow. Exam Vital Signs Vital Sign - Last Date Time Temp Pulse Resp B/P Pulse Ox O2 Delivery O2 Flow Rate FiO2 11/24/16 16:53 36.7 98 18 125/64 99 Room Air Intake and Output 11/23/16 11/23/16 11/24/16 Cumulative From/Thru 15:00 23:00 07:00 11/23/16 16:11 - 11/24/16 05:10 Intake Total 500 ml 427 ml 927 ml Output Total 600 ml 600 ml Balance 500 ml -173 ml 327 ml Intake Oral 0 ml 0 ml IV Total 500 ml 427 ml 927 ml Output Urine Total 200 ml 200 ml Stool Total 400 ml 400 ml Exam General: Alert and oriented, no acute distress Heart: Slight irregular, rate currently 112 on tele Lungs: Clear Abdomen: Soft, non-tender, BT present Extremities: No pedal edema IVs and Medications Medications Reviewed: Medications were reviewed in detail Lab and Diagnostics Result Diagram: 11/24/16 0515 11/24/16 0515 Assessment & Plan Ms. 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 She was admitted for observation of findings suggestive of small bowel obstruction. Hospital day 1 Suspected small bowel obstruction, acute, present on admission but now improving. Patient has history of extensive bowel surgery, adhesions may be source of obstruction - Sx: epigastric and upper quadrant abd pain - Acute series abdomen and abd CT: Findings suggestive of small bowel obstruction - general surgery consulted, feel SBO is resolving - Lipase 51; no findings suggestive of pancreatitis - Initially Nothing by mouth, now advanced to gen diet per surgery - NG tube not required Metabolic acidosis, acute, present on admission. Under evaluation - On admit: AG 20; likely secondary to electrolyte shifts from nausea, vomiting/ fluid shifts, acidosis persists 11/24, recheck in am - Treat underlying causes - LA initially elevated, back to normal this am Acute on chronic kidney disease, stage III, present on admission. Active - On admit: Creatinine 1.55 and same 11/24 am. (10/05/16 1.02; previous values 1.06, 1.05, 1.12) - Gentle hydration, NS 80 - Avoid nephrotoxic medications - Holding metformin, lisinopril Leukocytosis, acute, present on admission. Now resolved. - No obvious signs of infection: Afebrile; but pt has recent sick contacts with similar sx - Likely secondary to stress Hyperkalemia, chronic, present on admission. Monitor - This is a chronic condition for the patient; outpatient values: 5.5, 5.2 - On admit: K 5.6; asymptomatic and 5.8 11/24. Will recheck this evening and in am. - Avoid Kayexalate at this time secondary to bowel symptoms - Tele Chronic atrial fibrillation on Eliquis. Presumed stable - initially anticoagulation held but resumed today as it dose not appear she wiill require surgical intervention - Rate control borderline - metoprolol continued (not sure if missed dose?) - Continue to monitor Non-insulin using diabetes mellitus, chronic. Presumed stable - A1c September 2016: 7.3 - Holding metformin at this time - Low-dose correctional scale in place Suspected osteomyelitis left lower extremity status post debridement and completion of antibiotic therapy, chronic. Presumed stable - Patient reports infection of her bone of left lower extremity; procedure completed by Dr. Putnam - Not on current antibiotic therapy - Followed at wound care; wound care consult order placed COPD with emphysema. Presumed stable - Duoneb qidwa + accuneb q2h Hyperlipidemia and history of CVA/TIA. Chronic, presumed stable - Continue statin therapy PRN: Fever/bowel/nausea/pain DVT: SCDs only at this time; await results CT prior to initiating anticoag therapy GI: Not indicated Diet: Nothing by mouth CODE STATUS: Full code Patient status: Due to severity of representing symptoms, risk of adverse events , and likely course of care, anticipated length of stay does not exceed to midnight; patient admitted as observation status Pain Evaluation: Adequate Pain Control GI Prophylaxis: Not indicated VTE Prophylaxis: SCDs VTE Mechanical Devices: Intermittant Pneumatic CD Resuscitation Status: CPR: Attempt Resuscitation Jerilyn Nieves MD Nov 24, 2016 18:14 Jerilyn Nieves MD Nov 24, 2016 18:14
[2016-11-25] VITALS: BP 94/59; PULSE 94; RESP 17; O2SAT 95
[2016-11-25 03:34] VITALS: PULSE 91
[2016-11-25 05:17] VITALS: BP 116/70; PULSE 81; RESP 17; O2SAT 92
--- NOTE | 2016-11-25 07:28 | PCM.DC.MED ---
Discharge Summary Date of Service Nov 25, 2016 Dates of Hospitalization Date of Hospital Admission Nov 23, 2016 at 19:24 Date of Discharge: Nov 25, 2016 Providers: Admitting Physician: Louis Hickey MD Primary Care Physician: Davidson Garcia MD Attending Physician: Louis Hickey MD Diagnosis at Time of Discharge Diagnosis at Time of Discharge small bowel obstruction, acute, Metabolic acidosis, acute, Acute on chronic kidney disease, stage III, present on admission. Leukocytosis, acute, present on admission. Now resolved. Hyperkalemia, chronic, present on admission. Chronic atrial fibrillation on Eliquis. Presumed stable Non-insulin using diabetes mellitus, chronic. Suspected osteomyelitis left lower extremity status post debridement and completion of antibiotic therapy, chronic. Presumed stable COPD with emphysema Brief History Ms. 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 She was admitted for observation of findings suggestive of small bowel obstruction. Hospital day 1 Ms. 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 She denies any associated fever, chills, cough, dysuria. She also denies any changes in her ostomy output, and believe she change the bed the day of admission. She denies any blood within her urine or ostomy output. She states her abdominal pain as diffuse, but primarily in the epigastric and upper quadrants, described as intermittently sharp. She states she has no history of prior bowel obstruction. She does note some recent sick contacts, but her sick contacts were ill with fevers, chills, and general malaise. Ms. Hayes states she feels rather well aside from her current symptoms of vomiting and abdominal pain. She states she has been tolerating oral intake well, without any dysphagia, cough, shortness of breath, chest pain, palpitations. She tolerated the oral contrast well in the ED. She was recently seen by cardiology 10/20/16, and at that visit, she was noted to have continued hyperkalemia. She was also seen by her PCP 10/06/2016, and at that visit, her A1c was 7.3, and her medical conditions were stable at that time. In the ED, T 36.6, pulse 69, respiratory rate 16, blood pressure 118/81, 98% on room air; initial labs revealed WBC 10.6 with 86.5 neutrophils, hemoglobin 15.2 , potassium 5.6, BUN/creatinine 39, creatinine 1.55, calcium 11.0; UA obtained was negative for occult blood, leukocyte esterase, and nitrites, few bacteria were seen. Initial imaging was acute abdominal series x-ray which revealed several dilated loops of small bowel within the left mid abdomen which was suggested of mid small bowel obstruction in addition to multiple small calcified gallstones. The ED physician graciously contacted the surgical team, Dr. Manoj García, whom agreed that he will consult on this patient. CT abdomen and pelvis with oral contrast was ordered, study pending at time of admission. She was seen in the emergency department in stable condition, with plans for transfer to [facility]. Hospital Course Ms. 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 She was admitted for observation of findings suggestive of small bowel obstruction. Suspected small bowel obstruction, acute, present on admission but now resolved. Patient has history of extensive bowel surgery, adhesions may be source of obstruction - Sx: epigastric and upper quadrant abd pain - Acute series abdomen and abd CT: Findings suggestive of small bowel obstruction - general surgery consulted, feel SBO is resolving - Lipase 51; no findings suggestive of pancreatitis - Initially Nothing by mouth, now advanced to gen diet per surgery - NG tube not required Metabolic acidosis, acute, present on admission. Resolved - On admit: AG 20; likely secondary to electrolyte shifts from nausea, vomiting/ fluid shifts, - Treat underlying causes - LA initially elevated, back to normal next am Acute on chronic kidney disease, stage III, present on admission. Active. Improving - On admit: Creatinine 1.55 and same 11/24 am then 1.3 on am of DC (10/05/16 1.02 ; previous values 1.06, 1.05, 1.12) - Gentle hydration, NS 80 - Avoid nephrotoxic medications - Held metformin, lisinopril (and will continue to hold lisinopril at DC) Leukocytosis, acute, present on admission. Now resolved. - No obvious signs of infection: Afebrile; but pt has recent sick contacts with similar sx - Likely secondary to stress Hyperkalemia, chronic, present on admission. - This is a chronic condition for the patient; outpatient values: 5.5, 5.2 - On admit: K 5.6; asymptomatic and 5.8 11/24 am then 3.7 that [place] and 5.0 on am of DC . - Didn't give Kayexalate secondary to bowel symptoms - was monitored on Tele Chronic atrial fibrillation on Eliquis. Presumed stable - initially anticoagulation held but resumed today as it dose not appear she wiill require surgical intervention - Rate control borderline 11/24 with some episodes tachycardia to 140's but most often 120's - metoprolol continued (not sure if missed dose?), 70's to 80's on am of DC Non-insulin using diabetes mellitus, chronic. Presumed stable - A1c September 2016: 7.3 - Held metformin and used Low-dose correctional scale Suspected osteomyelitis left lower extremity status post debridement and completion of antibiotic therapy, chronic. Presumed stable - Patient reports infection of her bone of left lower extremity; procedure completed by Dr. Putnam - Not on current antibiotic therapy - Followed at wound care; wound care consult order placed COPD with emphysema. Presumed stable - Duoneb qidwa + accuneb q2h Hyperlipidemia and history of CVA/TIA. Chronic, presumed stable - Continued statin therapy Exam Vital Signs (Last) Date Time Temp Pulse Resp B/P Pulse Ox O2 Delivery O2 Flow Rate FiO2 11/25/16 05:17 36.4 81 17 116/70 92 Room Air Exam General: Alert and oriented, no acute distress Heart: Regular Lungs: Clear Abdomen: Soft, non-tender Extremities: No pedal edema Test 11/23/16 16:50 11/23/16 18:00 11/23/16 21:41 11/24/16 05:15 Total Bilirubin 0.5mg/dL (0.0-1.2) Aspartate Amino Transf (AST/SGOT) 32U/L (0-50) Alanine Aminotransferase (ALT/SGPT) 22U/L (0-32) Alkaline Phosphatase 87U/L (25-165) Total Protein 8.2g/dL (6.4-8.4) Albumin 4.7g/dL (3.4-5.0) Lipase 51U/L (13-60) Urine Color Yellow (YELLOW) Urine Appearance Clear (CLEAR,HAZY) Urine pH 5.5 (5.0-8.0) Urine Specific [place] 1.020 (1.003-1.035) Urine Protein 30mg/dL (NEG,TRACE) Urine Glucose (UA) Negativemg/dL (NEGATIVE) Urine Ketones Negativemg/dL (NEGATIVE) Urine Occult Blood Negative (NEGATIVE) Urine Nitrite Negative (NEGATIVE) Urine Bilirubin Negative (NEGATIVE) Urine Urobilinogen Normalmg/dL (NORMAL) Urine Leukocyte Esterase Negative (NEGATIVE) Urine RBC 0-2/hpf (0-2) Urine WBC 0-5/hpf (0-5) Urine Epithelial Cells Few/hpf (NONE-MOD) Urine Crystals None seen (NONE SEEN) Urine Bacteria Few/hpf (NONE-FEW) Urine Hyaline Casts 5/20/lpf (NONE) Urine Granular Casts Rare (NONE SEEN) Urine Waxy Casts None seen (NONE SEEN) Urine Red Blood Cell Casts None seen (NONE SEEN) Urine White Blood Cell Casts None seen (NONE SEEN) Urine Mucus Present (None Seen) Urine Trichomonas None seen (NONE SEEN) Urine Yeast None (NONE SEEN) Urinalysis Comment None Urine Culture Reflexed Not indicated Procalcitonin 0.14ng/mL (0.00-0.08) White Blood Count 6.0th/mm3 (3.8-10.1) Red Blood Count 4.27mil/mm3 (3.90-5.20) Hemoglobin 12.9g/dL (12.0-15.6) Hematocrit 39.3% (35.0-46.0) Mean Corpuscular Volume 92.0fL (81-100) Mean Corpuscular Hemoglobin 30.2pg (27.0-35.0) Mean Corpuscular Hemoglobin Concent 32.8% (32.0-37.0) Red Cell Distribution Width 13.7% (12.3-15.4) Platelet Count 247bil/L (150-400) Neutrophils (%) (Auto) 68.2% (40-74) Lymphocytes (%) (Auto) 13.6% (14-46) Monocytes (%) (Auto) 12.9% (4-12) Eosinophils (%) (Auto) 4.4% (0-5) Basophils (%) (Auto) 0.7% (0-3) Phosphorus Level 5.4mg/dL (2.5-4.9) Magnesium Level 1.6mg/dL (1.6-2.6) Test 11/24/16 08:07 11/25/16 04:45 Lactic Acid Level 1.6mmol/L (0.4-2.0) Sodium Level 138mEq/L (134-144) Potassium Level 5.0mEq/L (3.5-5.2) Chloride Level 106mEq/L (97-108) Carbon Dioxide Level 21mmol/L (18-29) Blood Urea Nitrogen 31mg/dL (8-27) Creatinine 1.32mg/dL (0.57-1.00) Estimat Glomerular Filtration Rate 55mL/min (>59) Glucose Level 107mg/dL (60-99) Calcium Level 9.4mg/dL (8.5-10.1) Discharge Medications Discharge Medications Apixaban (Eliquis) 2.5 Mg Tablet 2.5 MG PO BIDWM (Reported) Arformoterol Tartrate (Brovana) 15 Mcg/2 Ml Vial.neb 15 MCG IH BID (Reported) Atorvastatin Calcium (Atorvastatin Calcium) 20 Mg Tablet 20 MG PO DAILYWD ( Reported) Biotin (Biotin) 5 Mg Capsule 5 MG PO QAM (Reported) Budesonide (Pulmicort) 0.25 Mg/2 Ml Nebu 0.125 MG IH BID (Reported) Flaxseed Oil (Fortine-3 Flaxseed Oil) 1,000 Mg Capsule 1,000 MG PO QAM (Reported) Ipratropium/Albuterol Sulfate (Iprat-Albut 0.5-3(2.5) mg/3 mL Inhalant Soln) 3 Ml Ampul.neb 3 ML IH DAILYWL (Reported) Lisinopril (Lisinopril) 2.5 Mg Tablet 2.5 MG PO QAM (Reported) Magnesium Oxide (Magnesium) 400 Mg Capsule 400 MG PO QAM (Reported) Metformin (Metformin) 500 Mg Tablet 500 MG PO BIDWM (Reported) Metoprolol Succinate ER (Toprol XL) 100 Mg Tabcr 100 MG PO BID (Reported) Multivit with Calcium,Iron,Min (Maximum Daily Multivitamin) 1 Each Tablet 1 EACH PO QAM (Reported) Omeprazole Magnesium (Prilosec Otc) 20 Mg Tablet.dr 20 MG PO DAILYWM (Reported) Vit C/Vit E/Lutein/Min/Fortine-3 (Ocuvite Softgel) 1 Each Capsule 1 EACH PO QAM ( Reported) As needed Albuterol HFA (Proair HFA) 8.5 Gm Hfa.aer.ad 2 PUFFS INHALATION Q4H PRN PRN For Shortness of Breath (Reported) Ipratropium/Albuterol Sulfate (Iprat-Albut 0.5-3(2.5) mg/3 mL Inhalant Soln) 3 Ml Ampul.neb 3 ML IH Q6 PRN PRN prn (Reported) Jerilyn Nieves MD Nov 25, 2016 07:28 (8.5-10.1) Discharge Medications Discharge Medications Apixaban (Eliquis) 2.5 Mg Tablet 2.5 MG PO BIDWM (Reported) Arformoterol Tartrate (Brovana) 15 Mcg/2 Ml Vial.neb 15 MCG IH BID (Reported) Atorvastatin Calcium (Atorvastatin Calcium) 20 Mg Tablet 20 MG PO DAILYWD ( Reported) Biotin (Biotin) 5 Mg Capsule 5 MG PO QAM (Reported) Budesonide (Pulmicort) 0.25 Mg/2 Ml Nebu 0.125 MG IH BID (Reported) Flaxseed Oil (Fortine-3 Flaxseed Oil) 1,000 Mg Capsule 1,000 MG PO QAM (Reported) Ipratropium/Albuterol Sulfate (Iprat-Albut 0.5-3(2.5) mg/3 mL Inhalant Soln) 3 Ml Ampul.neb 3 ML IH DAILYWL (Reported) Lisinopril (Lisinopril) 2.5 Mg Tablet 2.5 MG PO QAM (Reported) Magnesium Oxide (Magnesium) 400 Mg Capsule 400 MG PO QAM (Reported) Metformin (Metformin) 500 Mg Tablet 500 MG PO BIDWM (Reported) Metoprolol Succinate ER (Toprol XL) 100 Mg Tabcr 100 MG PO BID (Reported) Multivit with Calcium,Iron,Min (Maximum Daily Multivitamin) 1 Each Tablet 1 EACH PO QAM (Reported) Omeprazole Magnesium (Prilosec Otc) 20 Mg Tablet.dr 20 MG PO DAILYWM (Reported) Vit C/Vit E/Lutein/Min/Fortine-3 (Ocuvite Softgel) 1 Each Capsule 1 EACH PO QAM ( Reported) As needed Albuterol HFA (Proair HFA) 8.5 Gm Hfa.aer.ad 2 PUFFS INHALATION Q4H PRN PRN For Shortness of Breath (Reported) Ipratropium/Albuterol Sulfate (Iprat-Albut 0.5-3(2.5) mg/3 mL Inhalant Soln) 3 Ml Ampul.neb 3 ML IH Q6 PRN PRN prn (Reported) Jerilyn Nieves MD Nov 25, 2016 07:28
--- NOTE | 2016-11-25 07:38 | PCM.DIMED ---
Discharge Instructions Date of Service Nov 25, 2016 Dates of Hospitalization Nov 23, 2016 at 19:24 Discharge Diagnosis Discharge Diagnosis small bowel obstruction, acute, Metabolic acidosis, acute, Acute on chronic kidney disease, stage III, present on admission. Leukocytosis, acute, present on admission. Now resolved. Hyperkalemia, chronic, present on admission. Chronic atrial fibrillation on Eliquis. Presumed stable Non-insulin using diabetes mellitus, chronic. Suspected osteomyelitis left lower extremity status post debridement and completion of antibiotic therapy, chronic. Presumed stable COPD with emphysema Diet Diabetic Activity No restrictions Call your provider Vomitting, Other (abdominal pain or bloating) Patient Instructions Follow up with your physicians as previously planned Additional Information Home with home health, mary JESSICA with nursing for wound care Jerilyn Nieves MD Nov 25, 2016 07:38
[2016-11-25] MEDS: Albuterol-Ipratropium 3 mL Inhalation Solution NEB SCH ×2 (07:59→12:11)
[2016-11-25 08:00] VITALS: PULSE 90; PULSE 93; RESP 18; O2SAT 92
[2016-11-25] MEDS: Insulin LISPRO 300 Unit/3 mL Inj SUBQ SCH ×2 (08:00→11:57)
[2016-11-25 08:19] VITALS: BP 110/74; PULSE 84; RESP 18; O2SAT 93
--- NOTE | 2016-11-25 09:13 | PCM.PNSURG ---
Subjective Date of Service: Nov 25, 2016 Date of Service: Nov 25, 2016 Visit Information: Reason for Visit Bowl Obstruction Surgery/Surgery Date Post-Op Day # Date of Admission: Nov 23, 2016 at 19:24 Hospital Day # Subjective: Ms. Cassie Hayes is doing much better today. she reports flatus and stool from her ostomy. She denies Nausea, vomiting, fever, chills. She denies abdominal pain, chest pain, shortness of breath. Objective Vital Sign- Last 8 Hours Date Time Temp Pulse Resp B/P Pulse Ox O2 Delivery O2 Flow Rate FiO2 11/25/16 05:17 36.4 81 17 116/70 92 Room Air 11/25/16 03:34 91 11/25/16 00:00 36.5 94 17 94/59 95 Room Air Intake and Output- Last 8 Hour 11/25/16 Cumulative From/Thru 07:00 11/23/16 16:11 - 11/25/16 05:52 Intake Total 736 ml 3733 ml Output Total 1950 ml 3050 ml Balance -1214 ml 683 ml Intake Oral 300 ml 1300 ml IV Total 436 ml 2433 ml Output Urine Total 1500 ml 2200 ml Stool Total 450 ml 850 ml General: Alert, Oriented X3 Neck: Supple Lungs: Clear to Auscultation Heart: Exam Unremarkable Catheters: None Result Diagram: 11/24/16 0515 11/25/16 0445 Assessment & Plan Impression Improving small bowel obstruction. Problems: Plan We discussed increasing ambulation and fluids at home. Tolerating diet well. Previous symptoms have resolved. Okay from surgery standpoint to d/c home. VTE Prophylaxis: SCDs Resuscitation Status: CPR: Attempt Resuscitation Attending Statement: I agree with Dr. Michael's assessment and plan. REY MICHAEL DO Nov 25, 2016 07:47 Dilshad García MD November 30, 2016 14:32
--- NOTE | 2016-11-25 09:17 | NUR ---
Social Work- Readiness for Discharge Data: EMR reviewed. Pt is on day 2 of hospitalization for bowl obstruction per H&P. Pt likely to discharge today. Pt is open with Maria Eugenia JESSICA RN for wound care. Per RN notes, pt is ambulating in room and hallway with cane. Pt to discharge home with daughter Bhumika to transport via POV. SW will continue to follow. Assessment: Pt who is open with Maria Eugenia JESSICA RN for wound care. Plan: Pt to resume [facility] Eug[facility] JESSICA RN at discharge. Pt to discharge home with daughter Bhuimka to transport via POV. SW will continue to follow. SALIMA Max
[2016-11-25] MEDS: 0.9% Sodium Chloride 1,000 ML IV SCH (09:25)
[2016-11-25] MEDS: MeTOProlol XL 50 mg ER24 Tablet PO SCH (09:26)
[2016-11-25] MEDS: Pantoprazole 20 mg ER24 Tablet PO SCH (09:26)
[2016-11-25 12:10] VITALS: PULSE 80; RESP 18; O2SAT 92
--- NOTE | 2016-11-25 13:15 | NUR ---
Social Work- Discharge Data: EMR reviewed. Pt is on day 2 of hospitalization for bowl obstruction per H&P. Pt to discharge today. Pt is open with Maria Eugenia JESSICA RN for wound care. Per RN notes, pt is ambulating in room and hallway with cane. Pt to discharge home with daughter Bhumika to transport via POV. SW will continue to follow. Assessment: Pt who is open with Maria Eugenia JESSICA RN for wound care. Plan: Pt to resume [facility] Eug[facility] JESSICA RN at discharge. Pt to discharge home with daughter Bhumika to transport via POV. SW will continue to follow. SALIMA Max
--- NOTE | 2016-11-25 13:25 | NUR ---
Discharge Pt discharged at this time, all belongings gathered and returned to pt. IV D/Cd intact, tele monitor removed. VSS, no complains of increased pain, N/V os abdominal discomfrt. Discharge packet printed and reviewed with pt and daughter. Pt taken off [facility] via wheelchair by this RN to be transported home in private vehicle driven by daughter.
== END 2016-11-25 13:22 | disposition home health service (06) | DRG 389 ==
LOC: SED 16:05 → OSC 19:24 → OBSVTOIN 19:24
PROVIDERS: ADMIT Hospitalist; ATTEND Hospitalist
DX: K56.5 Intestinal adhesions [bands] with obstruction (postinfection) (principal); E87.2 Acidosis; J44.9 Chronic obstructive pulmonary disease, unspecified; E11.9 Type 2 diabetes mellitus without complications; I25.10 Atherosclerotic heart disease of native coronary artery without angina pectoris; E78.5 Hyperlipidemia, unspecified; I48.0 Paroxysmal atrial fibrillation; Z87.891 Personal history of nicotine dependence; Z93.2 Ileostomy status; I12.9 Hypertensive chronic kidney disease with stage 1 through stage 4 chronic kidney disease, or unspecified chronic kidney disease; N18.3 Chronic kidney disease, stage 3 (moderate); E87.5 Hyperkalemia